=== PATIENT | male | born 1955 | race Caucasian/White ===

== ENCOUNTER 2020-11-16 16:47 | Inpatient (IN) | payer OTHER, SELFPAY ==
[2020-11-16 17:38] LABS: #Basophils 0.1 thou/uL (0.0-0.2); #Eosinphils 0.1 thou/uL (0.0-0.7); #Lymphocytes 1.9 thou/uL (1.20-3.40); #Monocytes 0.4 thou/uL (0.11-0.59); #Neutrophils 3.4 thou/uL (1.40-6.50); %Basophils 1.7 % (0.0-1.0); %Eosinophils 2.1 % (0.0-10.0); %Lymphocytes 32.4 % (21.0-51.0); %Monocytes 7.5 % (0.0-10.0); %Neutrophils 56.3 % (42.0-75.0); Hemoglobin 15.9 g/dL (14.0-18.0); Mean Corpuscular HGB CONC 30.8 g/dL (32.0-36.0); Mean Corpuscular Hemoglobin 26.9 pg (27.0-31.0); Mean Corpuscular Volume 87.3 fL (78.0-98.0); Mean Platelet Volume 8.2 fL (7.4-10.4); Platelet Count 255 thou/uL (130-400); RBC Distribution Width 12.7 % (11.5-14.5)
[2020-11-16 18:03] LABS: ALT (SGPT) 18 U/L (8-55); AST (SGOT) 22 U/L (5-34); Albumin 4.2 g/dL (3.4-4.8); Alkaline Phosphatase 82 U/L (40-110); Anion Gap 16 mmol/L (10-20); BUN (Urea Nitrogen) 13 mg/dL (8.4-25.7); Calc. Creatinine Clearance 0 mL/min (70-130); Carbon Dioxide 24 mmol/L (23-31); Chloride 99 mmol/L (98-107); Glucose 449 mg/dL (80-115); Potassium 4.5 mmol/L (3.5-5.1); Protein, Total 8.2 g/dL (5.8-8.1); Sodium 134 mmol/L (136-145)
[2020-11-16 18:20] LABS: CKMB 2.5 ng/mL (0-6.6)
[2020-11-16] MEDS ORDERED: hydrALAZINE 20 MG/ML VIAL ONE (18:22)
[2020-11-16] MEDS ORDERED: Insulin Regular 300 UNITS/3 ML VIAL ONE (18:52)
[2020-11-16] MEDS ORDERED: Ondansetron PF 4 MG/2 ML Vial ONE (19:25)
[2020-11-16] MEDS ORDERED: Ondansetron ODT 4 MG TAB PO PRN (21:11)
[2020-11-16] MEDS ORDERED: Acetaminophen 325 MG TAB PO PRN (21:11)
[2020-11-16] MEDS ORDERED: Calcium Carbonate 500 MG ChewTAB PO PRN (21:11)
[2020-11-16] MEDS ORDERED: Dextrose 50% Abboject 50 ML SYRINGE SLOW IVP PRN (21:20)
[2020-11-16] MEDS ORDERED: Dextrose 5% in Water 1,000 ML IV PRN (21:20)
[2020-11-16] MEDS ORDERED: HumaLOG 300 UNITS/3 ML VIAL SC PRN (21:20)
[2020-11-16 21:53] LABS: Hemoglobin A1c 11.7 % (4.0-6.0)
[2020-11-16 22:46] LABS: CKMB 2.1 ng/mL (0-6.6)
[2020-11-17] MEDS: HumaLOG 300 UNITS/3 ML VIAL SC PRN ×2 (00:44→16:48)
[2020-11-17 01:16] VITALS: BMI 34.7
[2020-11-17 06:02] LABS: #Eosinphils 0.1 thou/uL (0.0-0.7); #Lymphocytes 2.4 thou/uL (1.20-3.40); #Monocytes 0.6 thou/uL (0.11-0.59); #Neutrophils 4.3 thou/uL (1.40-6.50); %Basophils 0.3 % (0.0-1.0); %Eosinophils 1.2 % (0.0-10.0); %Lymphocytes 31.9 % (21.0-51.0); %Monocytes 8.6 % (0.0-10.0); Hemoglobin 15.8 g/dL (14.0-18.0); Mean Corpuscular HGB CONC 34.7 g/dL (32.0-36.0); Mean Corpuscular Hemoglobin 30.7 pg (27.0-31.0); Mean Corpuscular Volume 88.4 fL (78.0-98.0); Mean Platelet Volume 8.1 fL (7.4-10.4); Platelet Count 254 thou/uL (130-400); RBC Distribution Width 12.5 % (11.5-14.5); Red Blood Cell (RBC) Count 5.14 mill/uL (4.70-6.10); White Blood Cell (WBC) Count 7.4 thou/uL (4.8-10.8)
[2020-11-17 06:20] LABS: ALT (SGPT) 14 U/L (8-55); AST (SGOT) 10 U/L (5-34); Albumin 3.8 g/dL (3.4-4.8); Alkaline Phosphatase 63 U/L (40-110); Anion Gap 15 mmol/L (10-20); BUN (Urea Nitrogen) 17 mg/dL (8.4-25.7); Bilirubin, Total 1.2 mg/dL (0.2-1.2); Calc. Creatinine Clearance 110 mL/min (70-130); Calcium 9.2 mg/dL (7.8-10.44); Carbon Dioxide 24 mmol/L (23-31); Cardiac Risk 8.3 (Less than 4.5); Chloride 102 mmol/L (98-107); Cholesterol 289 mg/dl (< 200 Desired); Globulin 2.7 g/dL (2.4-3.5); Glucose 318 mg/dL (80-115); HDL Cholesterol 35 mg/dL (>60 Neg Risk); Protein, Total 6.5 g/dL (5.8-8.1); Sodium 137 mmol/L (136-145); Triglycerides 710 mg/dL (Less than 150)
[2020-11-17 06:50] LABS: CKMB 1.8 ng/mL (0-6.6)
[2020-11-17] MEDS ORDERED: Lisinopril 5 MG TAB PO SCH (09:00)
[2020-11-17] MEDS: Aspirin 81 mg Enteric Coated Tablet PO SCH (10:08)
[2020-11-17] MEDS: Enoxaparin Sodium 40 MG/0.4 ML SYRINGE SC SCH (10:08)
[2020-11-17] MEDS ORDERED: HumuLIN 70/30 (300 UNITS/3 ML VIAL) SC SCH ×2 (11:15→21:00)
[2020-11-17] MEDS ORDERED: hydrALAZINE 20 MG/ML VIAL SLOW IVP SCH (13:00)
[2020-11-17 13:46] LABS: SARS-CoV-2 PCR by NAA Not Detected (NotDetected)
[2020-11-17] MEDS: metFORMIN 500 MG TAB PO SCH (16:49)
[2020-11-17] MEDS: Atorvastatin Calcium 40 MG TAB PO SCH (22:33)
[2020-11-18] MEDS: HumaLOG 300 UNITS/3 ML VIAL SC PRN ×4 (06:57→20:44)
[2020-11-18] MEDS ORDERED: HumuLIN 70/30 (300 UNITS/3 ML VIAL) SC SCH (09:00)
[2020-11-18] MEDS ORDERED: Lisinopril 5 MG TAB PO SCH (09:00)
[2020-11-18] MEDS: Clopidogrel Bisulfate 75 MG TAB PO SCH (09:03)
[2020-11-18] MEDS: Aspirin 81 mg Enteric Coated Tablet PO SCH (09:03)
[2020-11-18] MEDS: metFORMIN 500 MG TAB PO SCH (09:03)
[2020-11-18] MEDS: Enoxaparin Sodium 40 MG/0.4 ML SYRINGE SC SCH (09:04)
[2020-11-18] MEDS: HumuLIN 70/30 (300 UNITS/3 ML VIAL) SC SCH ×2 (09:05→20:41)
[2020-11-18] MEDS ORDERED: Carvedilol 6.25 MG TAB PO SCH (10:30)
[2020-11-18] MEDS ORDERED: Carvedilol 3.125 MG TAB PO SCH (10:45)
[2020-11-18] MEDS: Carvedilol 3.125 MG TAB PO SCH (16:56)
[2020-11-18] MEDS: Atorvastatin Calcium 40 MG TAB PO SCH (20:41)
[2020-11-19] MEDS: HumaLOG 300 UNITS/3 ML VIAL SC PRN ×3 (05:52→21:37)
[2020-11-19] MEDS: Aspirin 81 mg Enteric Coated Tablet PO SCH (08:59)
[2020-11-19] MEDS: Lisinopril 20 MG TAB PO SCH (09:00)
[2020-11-19] MEDS: Clopidogrel Bisulfate 75 MG TAB PO SCH (09:01)
[2020-11-19] MEDS: Carvedilol 3.125 MG TAB PO SCH (09:03)
[2020-11-19] MEDS: Enoxaparin Sodium 40 MG/0.4 ML SYRINGE SC SCH (09:04)
[2020-11-19] MEDS: HumuLIN 70/30 (300 UNITS/3 ML VIAL) SC SCH ×2 (09:04→21:36)
[2020-11-19] MEDS: hydrALAZINE 20 MG/ML VIAL SLOW IVP PRN ×2 (09:05→19:50)
[2020-11-19] MEDS ORDERED: Carvedilol 3.125 MG TAB PO SCH (10:30)
[2020-11-19] MEDS ORDERED: Gabapentin 300 MG CAP PO SCH (12:30)
[2020-11-19] MEDS: Carvedilol 6.25 MG TAB PO SCH (15:35)
[2020-11-19] MEDS: Atorvastatin Calcium 40 MG TAB PO SCH (21:36)
[2020-11-20] MEDS: HumaLOG 300 UNITS/3 ML VIAL SC PRN ×3 (06:18→18:30)
[2020-11-20] MEDS: Enoxaparin Sodium 40 MG/0.4 ML SYRINGE SC SCH (09:01)
[2020-11-20] MEDS: Carvedilol 6.25 MG TAB PO SCH ×2 (09:02→15:51)
[2020-11-20] MEDS: Clopidogrel Bisulfate 75 MG TAB PO SCH (09:02)
[2020-11-20] MEDS: Lisinopril 20 MG TAB PO SCH (09:02)
[2020-11-20] MEDS: Aspirin 81 mg Enteric Coated Tablet PO SCH (09:02)
[2020-11-20] MEDS: HumuLIN 70/30 (300 UNITS/3 ML VIAL) SC SCH ×2 (09:04→21:09)
[2020-11-20] MEDS ORDERED: Lisinopril 20 MG TAB PO SCH (10:34)
[2020-11-20] MEDS ORDERED: Lisinopril 10 MG TAB PO SCH (11:00)
[2020-11-20] MEDS: metFORMIN 500 MG TAB PO SCH (15:51)
[2020-11-20] MEDS: Gabapentin 300 MG CAP PO SCH ×2 (15:51→21:08)
[2020-11-20] MEDS: Atorvastatin Calcium 40 MG TAB PO SCH (21:08)
[2020-11-21] MEDS: hydrALAZINE 20 MG/ML VIAL SLOW IVP PRN ×2 (00:52→08:35)
[2020-11-21 08:12] VITALS: BP 189/93; TEMP 97.7
[2020-11-21] MEDS: Carvedilol 6.25 MG TAB PO SCH (08:33)
[2020-11-21] MEDS: Aspirin 81 mg Enteric Coated Tablet PO SCH (08:33)
[2020-11-21] MEDS: Gabapentin 300 MG CAP PO SCH (08:34)
[2020-11-21] MEDS: Enoxaparin Sodium 40 MG/0.4 ML SYRINGE SC SCH (08:35)
[2020-11-21] MEDS: Clopidogrel Bisulfate 75 MG TAB PO SCH (08:35)
[2020-11-21] MEDS: metFORMIN 500 MG TAB PO SCH (08:35)
[2020-11-21] MEDS: HumuLIN 70/30 (300 UNITS/3 ML VIAL) SC SCH (08:36)
[2020-11-21] MEDS ORDERED: Lisinopril 20 MG TAB PO SCH (09:00)
[2020-11-21] MEDS ORDERED: Lisinopril 10 MG TAB PO SCH (09:00)
[2020-11-21] MEDS ORDERED: Gabapentin 100 MG CAP PO SCH ×2 (10:45→15:00)
[2020-11-21] MEDS ORDERED: Hydrochlorothiazide 25 MG TAB PO SCH (10:45)
[2020-11-21] MEDS: HumaLOG 300 UNITS/3 ML VIAL SC PRN (10:57)
[2020-11-22] MEDS ORDERED: Hydrochlorothiazide 25 MG TAB PO SCH (09:00)
== END 2020-11-21 14:56 | disposition home or self-care (01) | DRG 65 ==
LOC: ERS 16:47 → 3SE 18:45 → OBSVTOIN 11-17 16:05
PROVIDERS: ADMIT Family Medicine; ATTEND Family Medicine
DX: I63.81 Other cerebral infarction due to occlusion or stenosis of small artery (principal); I16.1 Hypertensive emergency; G81.91 Hemiplegia, unspecified affecting right dominant side; Z66 Do not resuscitate; I10 Essential (primary) hypertension; E11.65 Type 2 diabetes mellitus with hyperglycemia; I70.0 Atherosclerosis of aorta; I35.1 Nonrheumatic aortic (valve) insufficiency; Z20.822 Contact with and (suspected) exposure to COVID-19; G89.29 Other chronic pain; R06.6 Hiccough; Z98.890 Other specified postprocedural states
CPT/HCPCS: 36415; 36416; 70450; 70551; 80053; 80061; 82553; 83036; 84443; 84484; 84681; 85025; 93005; 93306; 93880; 96372; 96374; 96375; 96376; G0378; J0360; J1650; J1815; J2405; Q0162; U0003; U0005

== ENCOUNTER 2022-10-22 13:49 | Outpatient (CLI) | payer MEDICARE | END 2022-10-22 13:50 | disposition home or self-care (01) | LOC: BICULT 13:49 | PROVIDERS: ATTEND Internal Medicine Nephrology | DX: N18.30 Chronic kidney disease, stage 3 unspecified (principal) | CPT/HCPCS: 76770; 93975 ==